=== PATIENT | female | born 1990 | race African-American/Black ===

== ENCOUNTER 2017-01-10 19:07 | Emergency (ER) | payer OTHER ==
[~2017-01-10] VITALS: Ht 162.6 cm; Wt 63.0 kg
[~2017-01-10 19:07] MED LIST: APAP500 PO; IBUPROFEN 600600 M1 PO; IBUPROFEN 800800 M1 PO; OSELB75 PO; PROMETHAZINE-C120 ML PO; ZOFRAN ODT4 MG PO
[2017-01-10] MEDS ORDERED: DEPO-PROVE150 MG/11 IM (21:54)
[2017-01-10 22:15] LABS: ABSOLUTE NEUTROPHILS 6.5 thou/uL (1.4-8.2); BASOPHILS 0.4 % (0.0-2.0); EOSINOPHILS 0.6 % (0.0-3.0); HEMATOCRIT 45.6 % (37.0-47.0); HEMOGLOBIN 15.2 gm/dL (12.0-15.0); LYMPHOCYTES 27.9 % (24.0-44.0); MCH 29.8 pg (26.0-34.0); MCHC 33.3 g/dL (28.0-37.0); MCV 89.7 fL (80.0-100.0); MONOCYTES 11.7 % (1.0-8.0); PLATELET COUNT 304 thou/uL (150-400); POLYS 59.4 % (36.0-66.0); RBC 5.09 mil/uL (4.20-5.00); RDW 13.9 % (10.5-14.5); WBC 10.9 thou/uL (4.0-11.0)
[2017-01-10 22:19] LABS: MANUAL DIFF NO
[2017-01-10 23:12] LABS: CALCIUM 9.1 mg/dL (8.5-10.1); POTASSIUM 3.3 mmol/L (3.5-5.1)
[2017-01-10 23:53] VITALS: BP 124/85
[2017-01-10] MEDS ORDERED: PENICILLIN V P500 MG PO (23:53)
[2017-01-10] MEDS ORDERED: MOBIC15 MG PO (23:53)
== END 2017-01-11 00:22 | disposition home or self-care (01) ==
LOC: ER 19:07
PROVIDERS: Physician Assistant
DX: R51 Headache (principal); K04.01 Reversible pulpitis; F17.210 Nicotine dependence, cigarettes, uncomplicated; F10.99 Alcohol use, unspecified with unspecified alcohol-induced disorder